=== PATIENT | female | born 1975 | race Caucasian/White ===

== ENCOUNTER 2017-05-01 17:58 | Emergency (ER) | payer MEDICAID ==
[2017-05-01 18:03] VITALS: BP 153/94; PULSE 77; RESP 18; TEMP 98.1; O2SAT 98
--- NOTE | 2017-05-01 18:22 | EDPHY ---
H & P Time Seen by Provider: 05/01/17 18:09 HPI/ROS: CHIEF COMPLAINT: Sinus drainage HISTORY OF PRESENT ILLNESS: The patient is a 41 y/o female with a history of sinus surgery a year ago for chronic sinusitis complaining of fluid dripping out of her nose. She has a history of transient feeling of pressure in her head that was investigated over a year ago and no known cause identified. MRI brain normal. This morning, she felt like she was going to have a nosebleed but when she stuck a tissue to catch the blood she noticed it was a clear fluid. Twice during the day when she bent over she could feel fluid dripping out. She has had a constant cough and tickle in her throat for the past few weeks but denies any other associated symptoms. She is quite concerned that she has CSF coming out of her nose. No recent head or neck trauma. REVIEW OF SYSTEMS: Constitutional: No fever, no chills Eyes: No visual changes ENT: No sore throat Respiratory: no shortness of breath Cardiac: No chest pain Gastrointestinal: No nausea, no vomiting, no abdominal pain Genitourinary: no dysuria Musculoskeletal: No leg pain or swelling Skin: No rash Neurological: No headache, no weakness Psychiatric: No depression Past Medical/Surgical History: Sinus surgery to open the passages for chronic sinusitis in May 2016. Social History: Teacher, lives in [place], . Smoking Status: Never smoked Physical Exam: General Appearance: Alert, no distress Eyes: Pupils equal and round, no conjunctival pallor or injection ENT, Mouth: Mucous membranes moist Neck: Normal inspection Respiratory: Lungs are clear to auscultation Cardiovascular: Regular rate and rhythm Gastrointestinal: Abdomen is soft and non- tender Neurological: A&O, nonfocal, normal gait Skin: Warm and dry, no rash Extremities: Nontender, no pedal edema Psychiatric: Mood and affect normal Constitutional: Initial Vital Signs Temperature (C) 36.7 C 05/01/17 18:01 Heart Rate 77 05/01/17 18:01 Respiratory Rate 18 05/01/17 18:01 Blood Pressure 153/94 H 05/01/17 18:01 O2 Sat (%) 98 05/01/17 18:01 O2 Delivery Mode Room Air Allergies/Adverse Reactions: Sulfa (Sulfonamide Antibiotics) Allergy (Verified 04/25/16 20:41) Home Medications: Medication Instructions Recorded Metoprolol Tartrate [Lopressor 50 75 mg PO BID #60 tab 15 mg (*)] Medical Decision Making ED Course/Re-evaluation: The patient is a 41 y/o female with a history of chronic sinusitis and sinus surgery complaining of sinus drainage. She had a few episodes of clear fluid dripping out of her nose which concerned her. She has a cough but denies any other associated symptoms. She is concerned it is cerebral spinal fluid though there are no indications it is. Most likely sinus drainage. Encouraged pt to restart her nasal steroid. Fluid sent for analysis ([id number]) to r/o CSF leak. Pt will c/b in 2-3 days for results. Departure - Departure Disposition: Home, Routine, Self-Care Clinical Impression: Chronic sinusitis Qualifiers: Sinusitis location: unspecified location Qualified Code(s): J32.9 - Chronic sinusitis, unspecified Condition: Good Instructions: Sinusitis (ED) Additional Instructions: 1. Resume taking your Flonase as prescribed. 2. Follow-up with Dr. Janusz Ferro, otolaryngology, for unimproved symptoms. 3. Return to the ED for worsening of condition. Referrals: JEAN-PAUL RUFF [Other] - As per Instructions Janusz Ferro [Other] - As per Instructions Report Scribed for: Irina Wright Report Scribed by: Brenda Mortensen Date of Report: 05/01/17 Time of Report: 18:22 Physician Review and Approval Statement: 05/01/17 18:23 Portions of this note were transcribed by a back office medical assistant. I personally performed a history, physical exam, medical decision making, and confirmed accuracy of information the transcribed note.
== END 2017-05-01 19:01 | disposition home or self-care (01) ==
DX: J32.9 Chronic sinusitis, unspecified (principal)

== ENCOUNTER → 2018-02-20 | Outpatient (CLI) | payer MEDICAID | LOC: FIMAGING 14:47 | DX: N88.8 Other specified noninflammatory disorders of cervix uteri (principal) ==

== ENCOUNTER 2018-07-30 02:13 | Emergency (ER) | payer MEDICAID ==
--- NOTE | 2018-07-30 03:14 | EDPHY ---
H & P Stated Complaint: CP @midnight, lightheaded/dizzy Time Seen by Provider: 07/30/18 02:19 HPI/ROS: HPI The patient presents with chest pain, brought in by paramedics. Patient had a long and stressful day today and went to bed at around midnight. While lying in bed she developed chest pain which she describes as a diffuse and throbbing sensation that felt like electric shocks. This was intermittent. First episode lasted for about 20 min and then resolved on its own. She then developed another episode of this. She did have some dizziness which she describes as mental fogginess during the episode. She checked her blood pressure and noticed that it was increasing and was as high as 159/99. She was worried about this so called 911. This episode was associated with shortness of breath. Her symptoms subsided when the ambulance crew arrived. The medics report to me that the patient was having sinus arrhythmia with occasional PVCs on her monitoring. The patient has a history of ventricular tachycardia which occurred during her . She also had frequent PVCs with this. She has an implantable loop recorder currently and recorded this event but has not been able to download her device yet. She was previously on metoprolol after she had an ablation which was unsuccessful. Her metoprolol dose has been lowered over the last several years and now she takes 25-50 mg once per day. She has no history of CAD.. REVIEW OF SYSTEMS 10 systems were reviewed and negative with the exception of the elements mentioned in the history of present illness. PMHx: Prior episodes of ventricular tachycardia as above Soc Hx: Lives in [place] PHYSICAL General Appearance: Alert, no distress Eyes: Pupils equal and round no pallor or injection ENT, Mouth: Mucous membranes moist Respiratory: There are no retractions, lungs are clear to auscultation Cardiovascular: Regular rate and rhythm Gastrointestinal: Abdomen is soft and non-tender, no masses, bowel sounds normal Neurological: A&O, moves all extremities Skin: Warm and dry, no rashes Musculoskeletal: Neck is supple non tender Extremities: symmetrical, full range of motion Psychiatric: Patient is oriented X 3, there is no agitation Source: Patient, EMS, Old records Exam Limitations: No limitations - Personal History LMP (Females 10-55): Now Current Tetanus/Diphtheria Vaccine: Yes - Medical/Surgical History Hx Asthma: No Hx Chronic Respiratory Disease: No Hx Diabetes: No Hx Cardiac Disease: Yes Hx Renal Disease: No Hx Cirrhosis: No Hx Alcoholism: No Hx HIV/AIDS: No Hx Splenectomy or Spleen Trauma: No Other PMH: sinus surgery. lap knee surgery, appy/ULCERS, gerd, hypertension. v -tach with PVC's syncope while . Dr. Austin is cardio - Social History Smoking Status: Never smoked Constitutional: Initial Vital Signs Temperature (C) 36.5 C 07/30/18 02:16 Heart Rate 67 07/30/18 02:16 Respiratory Rate 18 07/30/18 02:16 Blood Pressure 123/70 H 07/30/18 02:16 O2 Sat (%) 95 07/30/18 02:16 O2 Delivery Mode Room Air Allergies/Adverse Reactions: Sulfa (Sulfonamide Antibiotics) Allergy (Verified 07/30/18 02:19) Home Medications: Medication Instructions Recorded Metoprolol Tartrate [Lopressor 50 75 mg PO BID #60 tab 02/28/15 mg (*)] Medical Decision Making - Diagnostics EKG Interpretation: EKG: Complete interpretation has been separately recorded in the [employer] archive. Summary impression: Normal sinus rhythm Imaging Results: Chest x-ray one view is unremarkable, interpreted by me, radiology interpretation is pending. Imaging: I viewed and interpreted images myself Differential Diagnosis: This is a 43-year-old female with history of ventricular tachycardia during currently with an implantable loop recorder, taking beta-blockers chronically for her symptoms who now presents with chest pain after a long in stressful day beginning at about midnight tonight and persisting until paramedics arrived. This is associated with a slightly elevated blood pressure. This did not feel like her prior episodes of ventricular tachycardia. Medics noticed sinus arrhythmia. Here she is in a normal sinus rhythm with occasional PVCs. Blood pressure is stable. She feels much better. Plan for basic labs, electrolytes, chest x-ray, ongoing cardiac monitoring. The patient was monitored for about 2.5 hr on the cardiac monitors with occasional PVCs with no ventricular tachycardia. Labs, EKG, chest x-ray all unremarkable. Cause of her symptoms is not entirely clear, however I suspect was introduced by stress. Given that she is felt well since she has been here, has had normal vital signs, she is suitable for discharge. I have advised her that she is to follow up with her vocational counselor Dr. Austin for further evaluation and needs to download her cardiac monitoring for when she was symptomatic. She is happy with this plan. - Data Points Laboratory Results: Laboratory Results 07/30/18 03:00 07/30/18 03:00 Point of Care Test Results: Chemistry 07/30/18 02:41 POC Troponin I 0.00 ng/mL ng/mL (0.00-0.08) Departure - Departure Disposition: Home, Routine, Self-Care Clinical Impression: Chest pain, PVC (premature ventricular contraction) Condition: Good Instructions: Chest Pain (ED) Additional Instructions: The cause of your chest pain is not yet entirely clear. It is important that you follow up with your vocational counselor to take a look at your heart monitor during the time your experiencing the symptoms. We did not find any sign of heart attack, infection, dehydration or problem with the electrolytes. Please return to the ER if worse in any way. Referrals: Isacc Austin MD [Medical Doctor] - As per Instructions
[2018-07-30 03:16] LABS: PLATELET COUNT 284 10^3/uL (150-400)
[2018-07-30 05:27] VITALS: BP 108/69
--- NOTE | 2018-07-31 06:31 | CPEKG ---
Test Reason : OPEN Blood Pressure : / mmHG Vent. Rate : 059 BPM Atrial Rate : 058 BPM P-R Int : 131 ms QRS Dur : 094 ms QT Int : 460 ms P-R-T Axes : 006 028 042 degrees QTc Int : 456 ms Sinus rhythm Low voltage, extremity leads Confirmed by Adrianne Chen ([id number]) on 07/31/2018 6:31:26 AM Referred By: Adrianne Chen Confirmed By:Adrianne Chen
== END 2018-07-30 05:27 | disposition home or self-care (01) ==
LOC: EDUNIT#
DX: I49.3 Ventricular premature depolarization (principal); R07.9 Chest pain, unspecified
CPT/HCPCS: 84484-ER